=== PATIENT | male | born 1995 | race Two or more races ===

== ENCOUNTER 2017-04-15 06:40 | Day surgery (SDC) | payer BC ==
[2017-04-14 12:06] LABS: Urine Bilirubin Negative (Negative); Urine Blood Negative /uL (Negative); Urine Color Yellow (Yellow); Urine Glucose Normal (Normal); Urine Ketone Negative (Negative); Urine Nitrite Negative (Negative); Urine Urobilinogen Normal (Negative); Urine pH 6.5 (5.0-8.0)
[2017-04-14 12:08] LABS: Basophils # (auto) 0 uL; Basophils % (auto) 0.5 % (0.0-2.0); CONDITION Y; Eosinophils # (auto) 0.2 uL; Eosinophils % (auto) 4.1 % (0.0-7.0); Hematocrit 47.6 % (41.0-53.0); Hemoglobin 16.6 g/dL (13.5-17.5); Lymphocytes # (auto) 1.9 uL; Lymphocytes % (auto) 32.4 % (10.0-50.0); Mean Corpuscular Hemoglobin 31.4 pg (28.0-32.0); Mean Corpuscular Hgb Conc. 34.8 g/dL (32.0-36.0); Mean Corpuscular Volume 90.2 fL (80.0-100.0); Monocytes # (auto) 0.4 uL; Monocytes % (auto) 6.5 % (0.0-12.0); Neutrophils # (auto) 3.3 uL; Neutrophils % (auto) 56.5 % (37.0-80.0); Platelet Count (auto) 262 10^3/uL (140-450); Red Cell Distribution Width 12.9 % (11.6-16.0); White Blood Cell 5.8 10^3/uL (4.4-10.8)
[2017-04-14 12:23] LABS: Partial Thromboplastin Time 26.4 sec (22.64-33.71); Prothrombin Time 10.9 sec (9.37-12.3)
[2017-04-14 12:34] LABS: Albumin 3.8 g/dL (3.4-5.0); BUN/Creatinine Ratio 17.6; Bilirubin, Total 0.4 mg/dL (0.2-1.0); Calcium 9.2 mg/dL (8.5-10.1); Potassium 4.2 mmol/L (3.5-5.1); Total Protein 7.7 g/dL (6.4-8.2)
[~2017-04-15] VITALS: Ht 188 cm; Wt 108.9 kg
[2017-04-15] MEDS ORDERED: ceFAZolin 1GM/50ML D5W 50 ML IV ONE (07:18)
[2017-04-15] MEDS ORDERED: SODIUM CHLORIDE LOCK 20 ML ONE (07:53)
[2017-04-15] MEDS ORDERED: fentaNYL CITRATE 100 MCG/2 ML VL ONE (07:53)
[2017-04-15] MEDS ORDERED: ONDANSETRON HCL 4 MG/2 ML VIAL ONE (07:53)
[2017-04-15] MEDS ORDERED: PROPOFOL 10 MG/ML 20 ML IV ONE (07:53)
[2017-04-15] MEDS ORDERED: MIDAZOLAM HCL 1MG/1ML-2 ML VIAL ONE (07:53)
[2017-04-15] MEDS ORDERED: ceFAZolin 1GM VL ONE (08:03)
[2017-04-15] MEDS ORDERED: NEOMYCIN-BACITRACIN-POLYM 15GM TOP OINT TOP ONE (08:03)
[2017-04-15] MEDS ORDERED: BUPIVACAINE 0.75% INJ 10ML MPV SDV IJ ONE (08:03)
[2017-04-15] MEDS ORDERED: LIDOCAINE W/ EPINEPHRINE 1 % INJ 30ML ONE (08:52)
[2017-04-15] MEDS ORDERED: METOCLOPRAMIDE HCL 5MG/ml INJ 2ml VIAL IV ONE (09:00)
[2017-04-15] MEDS ORDERED: KETOROLAC TROMETH 30 MG/ML 1ML VIAL IV ONE (09:00)
[2017-04-15] MEDS ORDERED: HYDROmorphone HCL 2 MG/ML VL IV PRN (09:00)
[2017-04-15] MEDS ORDERED: SILVER SULFADIAZINE 1 % TOPICAL CREAM 50GM TOP ONE ×2 (09:07→09:20)
[2017-04-15] MEDS ORDERED: LIDOCAINE W/ EPINEPHRINE 1 % INJ 30ML IJ ONE ×2 (09:10→09:18)
[2017-04-15] MEDS ORDERED: SILVER NITRATE-POTAS NITRA STICK TOP ONE (09:14)
[2017-04-15 10:07] VITALS: BP 129/72
== END 2017-04-15 10:17 | disposition home or self-care (01) ==
LOC: SUR 06:40
PROVIDERS: ATTEND Podiatrist Foot & Ankle Surgery
DX: B07.0 Plantar wart (principal); E66.9 Obesity, unspecified; Z68.30 Body mass index [BMI] 30.0-30.9, adult
CPT/HCPCS: 11421; 36415; 80053; 81003; 85025; 85610; 85730; J0690; J2001; J2250; J2405; J2704; J3010; L3260; Q4139; J3490

== ENCOUNTER 2017-09-02 06:46 | Day surgery (SDC) | payer BC ==
[2017-09-01 12:34] LABS: Basophils # (auto) 0 uL; Basophils % (auto) 0.4 % (0.0-2.0); Eosinophils # (auto) 0.2 uL; Eosinophils % (auto) 3.4 % (0.0-7.0); Hematocrit 46.8 % (41.0-53.0); Hemoglobin 16.5 g/dL (13.5-17.5); Lymphocytes # (auto) 1.8 uL; Lymphocytes % (auto) 28.3 % (10.0-50.0); Mean Corpuscular Hemoglobin 31.4 pg (28.0-32.0); Mean Corpuscular Hgb Conc. 35.3 g/dL (32.0-36.0); Monocytes # (auto) 0.4 uL; Monocytes % (auto) 6.6 % (0.0-12.0); Neutrophils # (auto) 3.9 uL; Neutrophils % (auto) 61.3 % (37.0-80.0); Nucleated Red Blood Cells % 0.1 %; Platelet Count (auto) 257 10^3/uL (140-450); Red Blood Cells 5.25 10^6/uL (4.5-5.90); Red Cell Distribution Width 12.8 % (11.8-14.3); White Blood Cell 6.4 10^3/uL (4.4-10.8)
[2017-09-01 12:47] LABS: INR 0.95 (0.9-1.15); Partial Thromboplastin Time 26.5 sec (22.64-33.71); Prothrombin Time 10.4 sec (9.37-12.3)
[2017-09-01 12:55] LABS: BUN/Creatinine Ratio 23.9; Bilirubin, Total 0.4 mg/dL (0.2-1.0); Calcium 8.7 mg/dL (8.5-10.1); Potassium 3.9 mmol/L (3.5-5.1); Total Protein 7.9 g/dL (6.4-8.2)
[2017-09-01 13:58] LABS: Urine Bacteria NONE SEEN /hpf (None Seen); Urine Blood Negative /uL (Negative); Urine Specific Gravity 1.025 (1.001-1.035); Urine WBC 1 /hpf (0 - 3)
[~2017-09-02] VITALS: Ht 188 cm; Wt 117.9 kg
[2017-09-02] MEDS ORDERED: ceFAZolin 1GM/50ML 50 ML IV ONE (07:06)
[2017-09-02] MEDS ORDERED: BUPIVACAINE 0.75% INJ 10ML MPV SDV IJ ONE (07:35)
[2017-09-02] MEDS ORDERED: NEOMYCIN-BACITRACIN-POLYM 15GM TOP OINT TOP ONE (07:35)
[2017-09-02] MEDS ORDERED: fentaNYL CITRATE 100 MCG/2 ML VL ONE (09:21)
[2017-09-02] MEDS ORDERED: PROPOFOL 10 MG/ML 20 ML IV ONE (09:21)
[2017-09-02] MEDS ORDERED: MIDAZOLAM HCL 1MG/1ML-2 ML VIAL ONE (09:21)
[2017-09-02] MEDS ORDERED: DEXAMETHASONE SOD PHOS 10MG/1ML VIAL INJ ONE (09:21)
[2017-09-02] MEDS ORDERED: SILVER NITRATE-POTAS NITRA STICK TOP ONE (09:44)
[2017-09-02] MEDS ORDERED: SILVER SULFADIAZINE 1 % TOPICAL CREAM 50GM TOP ONE (09:53)
[2017-09-02] MEDS ORDERED: ePHEDrine SULFATE 50 MG/ML AMP IV PRN (10:00)
[2017-09-02] MEDS ORDERED: MIDAZOLAM HCL 1MG/1ML-2 ML VIAL IV PRN (10:00)
[2017-09-02] MEDS ORDERED: LABETALOL HCL 5 MG/ML 4ML SYRINGE IV PRN (10:00)
[2017-09-02] MEDS ORDERED: HYDROmorphone HCL 2 MG/ML VL IV PRN (10:00)
[2017-09-02] MEDS ORDERED: KETOROLAC TROMETH 30 MG/ML 1ML VIAL IV ONE (10:00)
[2017-09-02] MEDS ORDERED: MORPHINE SULF INJ 2 MG/ML SYRINGE 1ML IV ONE (10:00)
[2017-09-02] MEDS ORDERED: ONDANSETRON HCL 4 MG/2 ML VIAL IV ONE (10:00)
[2017-09-02 11:15] VITALS: BP 123/69
== END 2017-09-02 11:15 | disposition home or self-care (01) ==
LOC: SUR 06:46
PROVIDERS: ATTEND Podiatrist Foot & Ankle Surgery
DX: B07.0 Plantar wart (principal); E66.9 Obesity, unspecified; Z68.33 Body mass index [BMI] 33.0-33.9, adult; D69.6 Thrombocytopenia, unspecified
CPT/HCPCS: 28043; 36415; 80053; 81001; 85025; 85610; 85730; 88305; J0690; J1100; J2250; J2704; J3010; J3490; L3260